=== PATIENT | female | born 1955 | race African-American/Black ===

== ENCOUNTER 2019-12-27 22:30 | Emergency (ER) | payer MEDICARE, MEDICAID ==
[~2019-12-27] VITALS: Ht 167.6 cm; Wt 81.4 kg
[~2019-12-27 22:30] MED LIST: DIPH25 PO; GABA-1181 PO; NAPR-1025 PO; NIFE10 PO; OMEP20 PO; PRAV40TA4 PO
[2019-12-27 23:09] VITALS: BP 133/98
[2019-12-28] MEDS ORDERED: ACETAMINOPHEN 500 MG TABLET PO ONE (00:30)
[2019-12-28] MEDS ORDERED: KETOROLAC TROMETHAMINE 30 MG/ML VIAL IM ONE (03:45)
== END 2019-12-28 07:29 | disposition home or self-care (01) ==
LOC: EMS 22:31
DX: S00.33XA Contusion of nose, initial encounter (principal); K21.9 Gastro-esophageal reflux disease without esophagitis; E78.00 Pure hypercholesterolemia, unspecified; I10 Essential (primary) hypertension; G89.29 Other chronic pain; Y04.2XXA Assault by strike against or bumped into by another person, initial encounter; Y93.89 Activity, other specified; Y92.89 Other specified places as the place of occurrence of the external cause; Y99.8 Other external cause status
CPT/HCPCS: 70450; 70486; 72125; 96372; 99285; J1885

== ENCOUNTER 2020-01-01 19:57 | Emergency (ER) | payer MEDICARE, MEDICAID ==
[~2020-01-01] VITALS: Ht 167.6 cm; Wt 74.5 kg
[2020-01-01 20:02] VITALS: BP 108/73
== END 2020-01-01 21:52 | disposition left against medical advice (07) ==
LOC: EMS 19:57
DX: M25.559 Pain in unspecified hip (principal); Z53.21 Procedure and treatment not carried out due to patient leaving prior to being seen by health care provider